=== PATIENT | male | born 1965 | race Caucasian/White ===

== ENCOUNTER 2017-01-10 16:52 | Emergency (ER) | payer SELFPAY ==
[~2017-01-10] VITALS: Ht 177.8 cm; Wt 171.0 kg
[2017-01-10 16:54] VITALS: BP 129/82; TEMP 98.5
[2017-01-10] MEDS ORDERED: FLOMAX 0.40.4 MG/CAP PO (16:57)
[2017-01-10] MEDS ORDERED: ZANAFLEX CAPSULE2 MG (16:57)
[2017-01-10 20:16] VITALS: PULSE 92
== END 2017-01-10 20:16 | disposition home or self-care (01) ==
LOC: COL.ER 16:52
DX: S00.93XA Contusion of unspecified part of head, initial encounter (principal); S50.02XA Contusion of left elbow, initial encounter; M54.2 Cervicalgia; Z90.49 Acquired absence of other specified parts of digestive tract; W10.9XXA Fall (on) (from) unspecified stairs and steps, initial encounter; Y92.69 Other specified industrial and construction area as the place of occurrence of the external cause; Y99.0 Civilian activity done for income or pay

== ENCOUNTER 2017-01-14 07:59 | Outpatient (RCR) | payer OTHER ==
[~2017-01-14 07:59] MED LIST: FLOMAX 0.40.4 MG/CAP PO; ZANAFLEX CAPSULE2 MG
== END 2017-04-11 | disposition still patient (30) ==
LOC: WSOH
DX: S06.0X0A Concussion without loss of consciousness, initial encounter (principal); S40.022A Contusion of left upper arm, initial encounter; M54.2 Cervicalgia; W10.8XXA Fall (on) (from) other stairs and steps, initial encounter; Y99.0 Civilian activity done for income or pay

== ENCOUNTER 2017-11-14 10:49 | Outpatient (RCR) | payer OTHER | END 2017-11-25 14:40 | disposition home or self-care (01) | LOC: WSOH 10:49 | DX: S46.012A Strain of muscle(s) and tendon(s) of the rotator cuff of left shoulder, initial encounter (principal); S20.212A Contusion of left front wall of thorax, initial encounter; W10.1XXA Fall (on)(from) sidewalk curb, initial encounter; Y93.01 Activity, walking, marching and hiking; Y99.0 Civilian activity done for income or pay ==